=== PATIENT | female | born 1980 | race Caucasian/White ===

== ENCOUNTER 2019-02-13 09:09 | Outpatient (CLI) ==
[2015-09-20 08:28] VITALS: BMI 24.1
--- NOTE | 2019-02-13 11:39 | US ---
EXAM: Digital diagnostic mammogram with tomosynthesis, left breast ultrasound HISTORY: Left breast lump COMPARISON: 02/13/2019 FINDINGS: Mammogram: Digital MLO and CC views of the right and left breast were performed. Tomosynthesis was performed. Computer aided detection utilized. The breast tissue is dense, which limits the sensitiv ity of mammography. There is no evidence for mass, asymmetry, distortion, or suspicious calcificatio ns in either breast. Ultrasound: At the 11 o'clock position 10 cm from the nipple, in the region of clinical concern, ther e is a 0.6 x 0.4 x 0.5 cm hypoechoic ovoid circumscribed mass with posterior through transmission and no internal vascularity and small internal cystic changes suggested, likely a small fibroadenoma. IMPRESSION: Left breast mass that most likely represents a small fibroadenoma. This finding is prob ably benign. Recommend diagnostic mammogram and ultrasound follow-up in 6 months to ensure stability . BIRADS category 3, probably benign.
== END 2019-02-13 09:10 | disposition home or self-care (01) ==
LOC: RAD 09:09
PROVIDERS: ATTEND Family Medicine
DX: N63.21 Unspecified lump in the left breast, upper outer quadrant (principal)